=== PATIENT | female | born 1950 | race Caucasian/White ===

== ENCOUNTER 2018-12-10 11:25 | Day surgery (SDC) | payer OTHER ==
[~2018-12-10] VITALS: Ht 165.1 cm; Wt 69.0 kg
[~2018-12-10 11:25] MED LIST: ALBU90OI INH; ALPR.5 PO; Allegra-D 12 H1 EACH PO; Anti-Diarrheal2 MG; BUDE10.22 INH; COLE625; Calcium + Vita1 EACH PO; ESCI10 PO; Excedrin Extra1 EACH PO; FISH OIL 1,001000 MG PO; FLONASE ALLERG9.9 ML INH; IBUPROFEN200 MG PO; LOSARTAN-HCTZ1 EAC2 PO; METO50 PO; PSEU120ER PO; TUMS500 MG; VENL150ER PO; Valtrex1000 MG PO
== END 2018-12-10 13:05 | disposition home or self-care (01) ==
LOC: ORSCSDS 11:25
PROVIDERS: Internal Medicine Gastroenterology
PROC: 0DBE8ZX Excision of Large Intestine, Via Natural or Artificial Opening Endoscopic, Diagnostic (ICD-10-PCS; principal; 2018-12-10 13:00)
DX: R19.7 Diarrhea, unspecified (principal); K52.831 Collagenous colitis; J45.909 Unspecified asthma, uncomplicated; I10 Essential (primary) hypertension; K57.30 Diverticulosis of large intestine without perforation or abscess without bleeding; K64.8 Other hemorrhoids; Z87.891 Personal history of nicotine dependence; Z79.899 Other long term (current) drug therapy
CPT/HCPCS: 88305; 88313; J2704; J7120

== ENCOUNTER → 2019-06-28 | Outpatient (CLI) | payer OTHER ==
[2019-06-28 16:04] LABS: Adenovirus F 40/41 Not Detected (NOT DETECT); Astrovirus Not Detected (NOT DETECT); Campylobacter Sp Not Detected (NOT DETECT); Cryptosporidium Not Detected (NOT DETECT); Cyclospora Cayetanensis Not Detected (NOT DETECT); E. Coli O157 Not Detected (NOT DETECT); Entamoeba Histolytica Not Detected (NOT DETECT); Enteroaggregative E. coli-EAEC Not Detected (NOT DETECT); Enteropathogenic E. coli-EPEC Detected (NOT DETECT); Enterotoxigenic E. coli-ETEC Not Detected (NOT DETECT); Giardia Lamblia Not Detected (NOT DETECT); Norovirus GI/GII Not Detected (NOT DETECT); Plesiomonas Shigelloides Not Detected (NOT DETECT); Rotavirus A Not Detected (NOT DETECT); Salmonella Sp Not Detected (NOT DETECT); Sapovirus Not Detected (NOT DETECT); Shiga Toxin-prod E. coli-STEC Not Detected (NOT DETECT); Shigella/Enteroin E. coli-EIEC Not Detected (NOT DETECT); Vibrio Cholerae Not Detected (NOT DETECT); Vibrio Sp Not Detected (NOT DETECT); Yersinia Enterocolitica Not Detected (NOT DETECT)
== END | disposition home or self-care (01) ==
LOC: LAB 10:15 → LAB SHORT 10:15
PROVIDERS: Internal Medicine Gastroenterology
DX: R19.7 Diarrhea, unspecified (principal)
CPT/HCPCS: 0097U

== ENCOUNTER 2021-12-17 10:15 | Day surgery (SDC) | payer MEDICARE ==
[2021-12-17] MEDS ORDERED: ZOLP5 PO (11:15)
[2021-12-17] MEDS ORDERED: OMEP20ER PO (11:16)
== END 2021-12-17 11:38 | disposition home or self-care (01) ==
LOC: ORSCSDS 10:15
PROVIDERS: Anesthesiology
PROC: 3E0R33Z Introduction of Anti-inflammatory into Spinal Canal, Percutaneous Approach (ICD-10-PCS; principal; 2021-12-17 11:45)
DX: M51.16 Intervertebral disc disorders with radiculopathy, lumbar region (principal); M54.50 Low back pain, unspecified; I10 Essential (primary) hypertension; F41.9 Anxiety disorder, unspecified; F32.A Depression, unspecified; J45.909 Unspecified asthma, uncomplicated; Z79.899 Other long term (current) drug therapy
CPT/HCPCS: J1040

== ENCOUNTER 2022-01-17 13:31 | Day surgery (SDC) | payer MEDICARE ==
[~2022-01-17] VITALS: Ht 165.1 cm; Wt 81.1 kg
[~2022-01-17 13:31] MED LIST changes: +OMEP20ER PO; +ZOLP5 PO
[2022-01-17] MEDS ORDERED: BUDE.25 (13:50)
== END 2022-01-17 14:42 | disposition home or self-care (01) ==
LOC: ORSCSDS 13:31
PROVIDERS: Anesthesiology
PROC: 3E0R33Z Introduction of Anti-inflammatory into Spinal Canal, Percutaneous Approach (ICD-10-PCS; principal; 2022-01-17 15:00)
DX: M51.16 Intervertebral disc disorders with radiculopathy, lumbar region (principal); J45.909 Unspecified asthma, uncomplicated; F41.8 Other specified anxiety disorders; I10 Essential (primary) hypertension; Z79.51 Long term (current) use of inhaled steroids; Z79.899 Other long term (current) drug therapy
CPT/HCPCS: J1040